=== PATIENT | male | born 1930 | race Caucasian/White ===

== ENCOUNTER → 2016-05-01 | Outpatient (CLI) | payer MEDICARE | LOC: BFHH 13:20 | PROVIDERS: ATTEND Family Medicine | DX: E03.9 Hypothyroidism, unspecified (principal) ==

== ENCOUNTER → 2016-11-04 | Outpatient (CLI) | payer MEDICARE | END | disposition home or self-care (01) | LOC: GMAM 10:42 | PROVIDERS: ATTEND Family Medicine | DX: E03.9 Hypothyroidism, unspecified (principal) ==

== ENCOUNTER → 2016-11-12 | Outpatient (CLI) | payer MEDICARE ==
--- NOTE | 2016-11-13 15:42 | US ---
EXAM DESCRIPTION: Testicular CLINICAL HISTORY: 86 years Male, LEFT INCARCERATED INGUINAL HERNIA COMPARISON: None. FINDINGS: Sonographic evaluation of the scrotum demonstrates the right testis measuring 4.2 x 2.7 x 2.6 cm with a modest hydrocele with no evidence of testicular or epididymal mass. Right epididymis is 0.6 x 0.6 x 0.8 cm in size. On the left the testicle measures 3.5 x 3.5 x 2.3 cm. A modest left hydrocele is noted. The epididymis is estimated at 0.9 x 1.5 x 0.6 cm and appears to be mildly enlarged. Numerous vascular structures in the upper aspect of the scrotum suggests an element of varicocele. Above the testicle within the inguinal canal are peristalsing loops of bowel that extend to the upper extent of the testicle consistent with bowel herniated within a left inguinal hernia. IMPRESSION: 1. Normal testes bilaterally with small normal right epididymis and mild enlargement of the left epididymis. 2. Small bilateral hydroceles with herniated bowel filling the left inguinal canal to the upper margin of the left testicle consistent with possibility of an incarcerated inguinal hernia. 3. Probable small varicocele of the left scrotum. Electronically signed by: Shahbaz Dickens MD 11/13/2016 3:41 PM CDT
== END ==
LOC: US 15:40
PROVIDERS: ATTEND Surgery
DX: K40.90 Unilateral inguinal hernia, without obstruction or gangrene, not specified as recurrent (principal); N43.3 Hydrocele, unspecified

== ENCOUNTER 2016-11-25 06:00 | Day surgery (SDC) | payer MEDICARE ==
--- NOTE | 2016-11-22 08:42 | RAD ---
EXAM DESCRIPTION: Chest,2 Views CLINICAL HISTORY: pre-op COMPARISON: April 27, 2009 FINDINGS: Two-view chest x-ray shows enlargement of cardiac silhouette without pulmonary vascular congestion. 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 Multi lead left subclavian transvenous cardiac pacer with new defibrillator wire is seen with prior exam.. The lungs are normally aerated and clear. Costophrenic angles are sharp. Mild disc degenerative changes of the spine are seen. IMPRESSION: No radiographic evidence of acute cardiopulmonary disease. Mild cardiomegaly. Cardiac pacer defibrillator noted. Electronically signed by: Mic Montana MD 11/22/2016 8:41 AM CDT
[2016-11-25] MEDS ORDERED: LACTATED RINGERS 1,000 ML ONE (06:11)
[2016-11-25] MEDS ORDERED: SODIUM CHL 0.9% 100ML MINI-BAG 100 ML IVPB ONE (06:11)
[2016-11-25] MEDS ORDERED: ceFAZolin SODIUM 1 GM VIAL ONE (06:11)
[2016-11-25] MEDS ORDERED: NEOSTIGMINE METHYLSULFATE 1 MG/ML ML IV ONE (07:00)
[2016-11-25] MEDS ORDERED: ATROPINE SULFATE 0.4 MG/ML 1ML VIAL ONE (07:00)
[2016-11-25] MEDS ORDERED: PROPOFOL 200 MG/20 ML VIAL IV ONE (07:00)
[2016-11-25] MEDS ORDERED: BUPIVACAINE 0.25% W/EPI 50 ML VIAL INJ ONE (07:03)
[2016-11-25] MEDS ORDERED: fentaNYL CITRATE INJ 50 MCG/ML AMP ONE (08:27)
[2016-11-25] MEDS ORDERED: ROCURONIUM BROMIDE 10 MG/ML VIAL ONE (08:27)
[2016-11-25] MEDS ORDERED: LIDOCAINE 2 % GEL 5 ML TUBE TOP ONE (08:28)
[2016-11-25] MEDS ORDERED: LACTATED RINGERS 1,000 ML IVS ONE (10:24)
--- NOTE | 2016-11-25 10:55 | OP ---
DATE OF PROCEDURE: 11/25/16 PREOPERATIVE DIAGNOSIS: 1. Incarcerated left inguinal hernia. POSTOPERATIVE DIAGNOSIS: 1. Incarcerated left inguinal hernia. PROCEDURE: 1. Repair of incarcerated left inguinal hernia. SURGEON: Migel Mcneil MD. DRAWER IN JACQUARD LOOM: None. ANESTHESIA: General endotracheal anesthesia and local infiltration of 0.25% Marcaine with epinephrine. INDICATION: The patient is an 86-year-old male with a history of hernia for a long time. It has gotten bigger and become quite uncomfortable. Workup has revealed bowel within the incarcerated hernia. After the risks, benefits and alternatives to the procedure and a cardiac evaluation by his hot roll inspector was obtained, the patient was brought to the Surgical Suite today for hernia repair. FINDINGS: The patient had a large indirect inguinal hernia containing small bowel which had no sliding component. There was no significant weakness of the floor of the canal. PROCEDURE: After adequate general endotracheal anesthesia was obtained, the patient was prepped and draped in the usual sterile manner. At this point, a surgical time-out was taken. An oblique incision was fashioned in the left groin. Dissection was carried down through the skin and subcutaneous tissue using electrocautery and blunt dissection. This was after the magnet was placed over his pacemaker The self-retaining retractor was placed at this time. The external oblique fascia was then opened in the direction of the fibers through the external ring. When this was done, the cord was dissected free from the floor of the canal and the self-retaining retractor was placed at the level of the floor of the canal. When the cord was dissected free, a half inch Elmer drain was placed around it for traction. The fibers were then divided longitudinally. The cord was then explored with the indirect hernia sac identified and dissected free down to the level of the internal inguinal ring. It was eventually reduced below the floor of the canal. At this point hemostasis was obtained with electrocautery. A Surgimesh patch was introduced under the floor of the canal and sutured circumferentially lateral to the cord. Hemostasis was noted to be adequate. The wound was irrigated with saline. The Surgimesh patch was introduced to the floor of the canal and sutured circumferentially around the cord in the usual manner with interrupted 2-0 Vicryl sutures. When this was done, again, the wound was irrigated with saline. Hemostasis was noted to be adequate. The cord was placed back in position in the canal. The external oblique fascia was then closed with running 3-0 Vicryl suture. Again, the wound was irrigated with saline. Hemostasis was noted to be adequate. The cord and subcutaneous tissue above, below and lateral to the incision were infiltrated with local anesthesia. The Sandra's fascia was approximated with interrupted 3-0 Chromic suture. Skin edges were approximated with skin stapler. Sterile dressing was applied. The scrotum was checked for position of the testicle. The patient was awakened and taken to the Recovery Room in stable condition. Estimated blood loss was less than 100 mL. All sponge, needle and instrument counts were correct. #[id number] [facility]
[2016-11-25] MEDS ORDERED: ACETAMINOPHEN W/COD #3 TAB 1 EA TAB ONE (11:30)
[2016-11-25] MEDS ORDERED: ACETAMINOPHEN W/COD #3 TAB 1 EA TAB PO ONE (11:35)
[2016-11-25 13:56] VITALS: BP 160/78; TEMP 97.3; O2SAT 99
== END 2016-11-25 13:25 | disposition home or self-care (01) ==
LOC: AMB 06:00
PROVIDERS: ATTEND Surgery
DX: K40.30 Unilateral inguinal hernia, with obstruction, without gangrene, not specified as recurrent (principal); I10 Essential (primary) hypertension; I25.10 Atherosclerotic heart disease of native coronary artery without angina pectoris; I73.9 Peripheral vascular disease, unspecified; I42.9 Cardiomyopathy, unspecified; I35.0 Nonrheumatic aortic (valve) stenosis; J45.909 Unspecified asthma, uncomplicated; E03.9 Hypothyroidism, unspecified; G60.9 Hereditary and idiopathic neuropathy, unspecified; N40.0 Benign prostatic hyperplasia without lower urinary tract symptoms; G44.209 Tension-type headache, unspecified, not intractable; R41.3 Other amnesia; K59.00 Constipation, unspecified; Z95.0 Presence of cardiac pacemaker; Z87.891 Personal history of nicotine dependence; I25.2 Old myocardial infarction; Z95.1 Presence of aortocoronary bypass graft; Z79.899 Other long term (current) drug therapy
CPT/HCPCS: 00830; 36415; 49507; 71020; 80048; 81001; 85025; C1781; J0690; J2710; J3010; J3490; J7050; J7120

== ENCOUNTER → 2017-03-25 | Outpatient (CLI) | payer MEDICARE | END | disposition home or self-care (01) | LOC: GMA 14:53 | PROVIDERS: ATTEND Physician Assistant | DX: L02.818 Cutaneous abscess of other sites (principal) ==

== ENCOUNTER → 2018-11-18 | Outpatient (CLI) | payer MEDICARE | LOC: GMAM 11:12 | PROVIDERS: ATTEND Family Medicine | DX: E03.9 Hypothyroidism, unspecified (principal); I10 Essential (primary) hypertension ==

== ENCOUNTER → 2019-05-17 | Outpatient (CLI) | payer MEDICARE | LOC: GMAM 17:13 | PROVIDERS: ATTEND Family Medicine | DX: E03.9 Hypothyroidism, unspecified (principal); I10 Essential (primary) hypertension; R06.00 Dyspnea, unspecified ==